=== PATIENT | female | born 1940 | race Caucasian/White ===

== ENCOUNTER 2016-07-30 16:45 | Observation (INO) | payer OTHER, MEDICARE ==
[~2016-07-30] VITALS: Ht 167.6 cm; Wt 77.0 kg
[~2016-07-30 16:45] MED LIST: ALIGN4 MG PO; CALCIUM 600 +1 EA17 PO; CARDIZEM CD,CA180 MG PO; COLACE100 MG PO; INDERAL40 MG PO; PAXIL10 MG PO; PROTONIX20 MG PO; PROTONIX40 MG PO; XARELTO15 MG PO; XARELTO20 MG PO
[2016-07-30 17:20] LABS: HEMATOCRIT 39.7 % (36.0-46.0); MCH 31.2 PG (29.0-34.0); MCHC 33.5 G/DL (30.0-36.0); MCV 93.2 FL (83-99); MEAN PLAT.VOLUME 9.2 uM^3 (9.5-12.4); PLATELET COUNT 203 K/uL (156-360); RBC DIS.WIDTH-CV 11.7 % (11.8-14.6); RBC DIS.WIDTH-SD 39.4 % (39-53); RED BLOOD COUNT 4.26 M/uL (3.80-5.20); WHITE BLOOD COUNT 7.4 K/uL (4.1-10.2)
[2016-07-30 17:32] LABS: CHLORIDE 106 mEq/L (99-109); POTASSIUM 4.3 mEq/L (3.7-5.4); SODIUM 141 mEq/L (136-147)
[2016-07-30 17:33] LABS: GLUCOSE 93 mg/dL (70-99)
[2016-07-30 17:35] LABS: ANION GAP 9 MEQ/L (2-14)
[2016-07-30 17:37] LABS: GFR ESTIMATE (CALCULATED) 58 mL/min/
[2016-07-30 17:38] LABS: UREA NITROGEN (BUN) 23 mg/dL (9-23)
[2016-07-30 17:42] LABS: TROP-I INTERPRETATION NEGATIVE; TROPONIN-I < 0.01 ng/mL (0.0-0.30)
[2016-07-30] MEDS ORDERED: XARELTO20 MG PO (19:24)
[2016-07-30] MEDS ORDERED: CALCIUM 600 MG1 EACH PO (19:28)
[2016-07-30] MEDS ORDERED: MULTIVITAMIN1 EAC2 PO (19:29)
[2016-07-30 21:14] VITALS: BP 93/52
[2016-07-30 23:50] LABS: TROP-I INTERPRETATION NEGATIVE; TROPONIN-I < 0.01 ng/mL (0.0-0.30)
[2016-07-31 01:00] VITALS: BP 105/52
[2016-07-31 04:08] VITALS: BP 84/50; BP 92/52
[2016-07-31 05:00] VITALS: BP 92/56
[2016-07-31 05:39] LABS: TROP-I INTERPRETATION NEGATIVE; TROPONIN-I 0.01 ng/mL (0.0-0.30)
[2016-07-31 08:02] VITALS: BP 91/50
[2016-07-31 11:50] VITALS: BP 115/68
[2016-07-31 12:07] VITALS: BP 148/68
== END 2016-07-31 14:42 | disposition home or self-care (01) ==
LOC: EME 16:45 → EDOF 19:47 → 5WEST 21:00
PROVIDERS: Physician Assistant
DX: I48.0 Paroxysmal atrial fibrillation (principal); R07.9 Chest pain, unspecified; G43.909 Migraine, unspecified, not intractable, without status migrainosus; K21.9 Gastro-esophageal reflux disease without esophagitis; F41.9 Anxiety disorder, unspecified; Z86.711 Personal history of pulmonary embolism; Z79.01 Long term (current) use of anticoagulants
CPT/HCPCS: 71020; 80048; 84484; 85027; 93005; 99281; 99285; G0378; J2270; J2405; J7030

== ENCOUNTER 2016-10-26 11:59 | Observation (INO) | payer OTHER, MEDICARE ==
[~2016-10-26] VITALS: Ht 165.1 cm; Wt 77.9 kg
[~2016-10-26 11:59] MED LIST changes: +CALCIUM 600 MG1 EACH PO; +MULTIVITAMIN1 EAC2 PO
[2016-10-26 12:52] LABS: EOSINOPHIL (%) 1.1 % (0-5); EOSINOPHIL COUNT 0.1 K/uL (0-0.3); HEMATOCRIT 40.9 % (36.0-46.0); IMMATURE GRANULOCYTE (%) 0.8 % (0.0-0.7); IMMATURE GRANULOCYTE COUNT 0.1 K/uL; MCH 31.2 PG (29.0-34.0); MCV 91.9 FL (83-99); MEAN PLAT.VOLUME 9.5 uM^3 (9.5-12.4); MONOCYTE (%) 8.7 % (3-12); MONOCYTE COUNT 0.8 K/uL (0-0.8); NEUTROPHIL (%) 66.8 % (45-76); PLATELET COUNT 242 K/uL (156-360); RBC DIS.WIDTH-CV 12.1 % (11.8-14.6); RBC DIS.WIDTH-SD 40.9 % (39-53); RED BLOOD COUNT 4.45 M/uL (3.80-5.20); WHITE BLOOD COUNT 8.9 K/uL (4.1-10.2)
[2016-10-26 13:09] LABS: INTER. NORMALIZED RATIO 1.1; PROTHROMBIN TIME 11.2 (9.2-11.2); PTT 30.4 (25-32)
[2016-10-26 13:12] LABS: TROP-I INTERPRETATION NEGATIVE; TROPONIN-I 0.03 ng/mL (0.0-0.30)
[2016-10-26 13:56] LABS: CHLORIDE 110 mEq/L (99-109); POTASSIUM 4.4 mEq/L (3.7-5.4); SODIUM 141 mEq/L (136-147)
[2016-10-26 13:58] LABS: GLUCOSE 94 mg/dL (70-99)
[2016-10-26 14:00] LABS: ANION GAP 11 MEQ/L (2-14)
[2016-10-26 14:02] LABS: GFR ESTIMATE (CALCULATED) 51 mL/min/
[2016-10-26 14:03] LABS: UREA NITROGEN (BUN) 22 mg/dL (9-23)
[2016-10-26] MEDS ORDERED: PROPRANOLOL HCL40 MG PO (14:16)
[2016-10-26 15:17] VITALS: BP 104/53
[2016-10-26 18:12] LABS: TROP-I INTERPRETATION NEGATIVE; TROPONIN-I 0.02 ng/mL (0.0-0.30)
[2016-10-26 19:08] VITALS: BP 111/58
[2016-10-26 23:42] VITALS: BP 102/57
[2016-10-27 01:50] LABS: TROP-I INTERPRETATION NEGATIVE; TROPONIN-I 0.02 ng/mL (0.0-0.30)
[2016-10-27 04:18] VITALS: BP 111/51
[2016-10-27 09:18] VITALS: BP 124/59
== END 2016-10-27 11:47 | disposition home or self-care (01) ==
LOC: EME 11:59 → 5WEST 14:07 → EDOF 14:07 → 5WEST 15:10
PROVIDERS: Emergency Medicine; Hospitalist
DX: I48.0 Paroxysmal atrial fibrillation (principal); E86.0 Dehydration; Z79.01 Long term (current) use of anticoagulants; Z88.2 Allergy status to sulfonamides; K21.9 Gastro-esophageal reflux disease without esophagitis; Z86.711 Personal history of pulmonary embolism; G43.909 Migraine, unspecified, not intractable, without status migrainosus
CPT/HCPCS: 71010; 80048 91; 83735; 84443; 84484; 85025 91; 85610; 85730; 93005; 99281; 99285; G0378; J7030

== ENCOUNTER 2017-01-04 00:08 | Inpatient (IN) | payer OTHER, MEDICARE ==
[2017-01-04] VITALS (14 sets, daily range): BP systolic 97–137; BP diastolic 40–59
[~2017-01-04] VITALS: Ht 167.6 cm; Wt 82.1 kg
[~2017-01-04 00:08] MED LIST changes: +PROPRANOLOL HCL40 MG PO
[2017-01-04 01:01] LABS: MCH 30.8 PG (29.0-34.0); MCHC 33.6 G/DL (30.0-36.0); MCV 91.8 FL (83-99); MEAN PLAT.VOLUME 9.7 uM^3 (9.5-12.4); PLATELET COUNT 218 K/uL (156-360); RBC DIS.WIDTH-CV 11.9 % (11.8-14.6); RED BLOOD COUNT 4.25 M/uL (3.80-5.20); WHITE BLOOD COUNT 6.9 K/uL (4.1-10.2)
[2017-01-04 01:09] LABS: INTER. NORMALIZED RATIO 1.2
[2017-01-04 01:12] LABS: PTT 36.9 SEC (25-37)
[2017-01-04 01:18] LABS: CHLORIDE 107 mEq/L (99-109); POTASSIUM 4.2 mEq/L (3.7-5.4); SODIUM 142 mEq/L (136-147)
[2017-01-04 01:21] LABS: GLUCOSE 102 mg/dL (70-99)
[2017-01-04 01:22] LABS: ANION GAP 9 MEQ/L (2-14)
[2017-01-04 01:23] LABS: TOTAL BILIRUBIN 0.2 mg/dL (0.0-1.0)
[2017-01-04 01:24] LABS: ALKALINE PHOSPHATASE 115 IU/L (3-129); GFR ESTIMATE (CALCULATED) 57 mL/min/
[2017-01-04 01:25] LABS: UREA NITROGEN (BUN) 27 mg/dL (9-23)
[2017-01-04 01:28] LABS: LIPASE 38 U/L (1.0-51.0)
[2017-01-04 01:29] LABS: TROP-I INTERPRETATION NEGATIVE; TROPONIN-I < 0.01 ng/mL (0.0-0.30)
[2017-01-04] MEDS ORDERED: RANITIDINE HCL150 MG PO (03:25)
[2017-01-04 19:36] LABS: TROP-I INTERPRETATION NEGATIVE; TROPONIN-I 0.01 ng/mL (0.0-0.30)
[2017-01-05 04:00] VITALS: BP 127/59
[2017-01-05 04:48] LABS: TROP-I INTERPRETATION NEGATIVE; TROPONIN-I < 0.01 ng/mL (0.0-0.30)
[2017-01-05 07:23] VITALS: BP 126/61
[2017-01-05 11:35] LABS: TROP-I INTERPRETATION NEGATIVE; TROPONIN-I < 0.01 ng/mL (0.0-0.30)
[2017-01-05 11:36] VITALS: BP 127/60
[2017-01-05] MEDS ORDERED: INDERAL20 MG PO (15:50)
== END 2017-01-05 16:50 | disposition home or self-care (01) | DRG 310 ==
LOC: EME 00:08 → EDOF 02:53 → ENRESERV 02:58 → 4EAST 04:32
PROVIDERS: Emergency Medicine; Internal Medicine
DX: I48.0 Paroxysmal atrial fibrillation (principal); I49.5 Sick sinus syndrome; F41.9 Anxiety disorder, unspecified; G43.909 Migraine, unspecified, not intractable, without status migrainosus; K21.9 Gastro-esophageal reflux disease without esophagitis; Z86.711 Personal history of pulmonary embolism; Z79.01 Long term (current) use of anticoagulants; Z88.2 Allergy status to sulfonamides
CPT/HCPCS: 71020; 80053; 83690; 83735; 83880; 84100; 84484; 85027; 85610; 85730; 93005; 99281; 99285; J7030; J7050

== ENCOUNTER 2017-02-20 12:27 | Day surgery (SDC) | payer OTHER, MEDICARE ==
[~2017-02-20] VITALS: Ht 167.6 cm; Wt 80.2 kg
[~2017-02-20 12:27] MED LIST changes: +INDERAL20 MG PO; +RANITIDINE HCL150 MG PO; +ROSUVASTATIN CA20 MG PO
[2017-02-20 16:30] VITALS: BP 107/80
[2017-02-20 19:08] VITALS: BP 159/70
[2017-02-20 23:36] VITALS: BP 129/62
[2017-02-21 04:27] VITALS: BP 117/57
[2017-02-21 06:49] VITALS: BP 114/55
[2017-02-21 11:18] VITALS: BP 123/58
== END 2017-02-21 15:21 | disposition home or self-care (01) ==
LOC: CATH 12:27 → ENRESERV 14:52 → 2SOUTH 14:55 → 4EAST 14:55 → 2SOUTH 14:55 → ENRESERV 15:03 → 4EAST 16:39
DX: I49.5 Sick sinus syndrome (principal); I27.20 Pulmonary hypertension, unspecified; I48.0 Paroxysmal atrial fibrillation; Z79.01 Long term (current) use of anticoagulants; Z86.711 Personal history of pulmonary embolism; I35.1 Nonrheumatic aortic (valve) insufficiency; K21.9 Gastro-esophageal reflux disease without esophagitis; E78.2 Mixed hyperlipidemia; R55 Syncope and collapse
CPT/HCPCS: 71010; 93005; C1785; C1892; C1894; C1898; G0378; J0690; J1200; J1742; J2250; J3010; J7050; S0020